=== PATIENT | female | born 1995 | race Caucasian/White ===

== ENCOUNTER 2017-05-29 09:27 | Emergency (ER) | payer OTHER ==
--- NOTE | 2017-05-29 09:33 | EDPHY ---
H & P Time Seen by Provider: 05/29/17 09:32 - Medical/Surgical History Hx Asthma: No Hx Chronic Respiratory Disease: No Hx Diabetes: No Hx Cardiac Disease: No Hx Renal Disease: No Hx Cirrhosis: No Hx Alcoholism: No Hx HIV/AIDS: No Hx Splenectomy or Spleen Trauma: No Other PMH: R knee sx - Social History Smoking Status: Never smoked Constitutional: Initial Vital Signs Temperature (C) 38.0 C 05/29/17 09:34 Heart Rate 100 05/29/17 09:34 Respiratory Rate 16 05/29/17 09:34 Blood Pressure 117/80 05/29/17 09:34 O2 Sat (%) 92 05/29/17 09:34 O2 Delivery Mode Room Air Allergies/Adverse Reactions: No Known Allergies Allergy (Unverified 08/16/14 19:19) Home Medications: Medication Instructions Recorded Albuterol [Proventil Inhaler] 1 - 2 puffs IH Q4 #1 mdi 05/29/17 Bcp 05/29/17 HYDROcodone/HOMATROPINE HYCODA 1 tsp PO Q4-6PRN PRN #120 ml 05/29/17 [Hycodan Syrup (RX)] Lexapro 05/29/17 levOFLOXACIN [levAQUIN 750 MG (RX)] 750 mg PO DAILY #10 tab 05/29/17 Medical Decision Making - Diagnostics Imaging: I viewed and interpreted images myself ED Course/Re-evaluation: CHIEF COMPLAINT: Cough, headache, nausea, vomiting HISTORY OF PRESENT ILLNESS: The patient is a 21 y/o female complaining of cough, headache, nausea, vomiting , and chills since Tuesday, 4 days ago. Her symptoms worsened on . Denies shortness of breath, abdominal pain, paresthesias, numbness, urinary or bowel complaints, or other pertinent symptoms. REVIEW OF SYSTEMS: A 10 point review of systems was performed and is negative with the exception of the elements mentioned in the history of present illness. PHYSICAL EXAM: HR, BP, O2 Sat, RR. Temp noted General Appearance: Alert, well hydrated, appropriate, and non-toxic appearing. Head: Atraumatic without scalp tenderness or obvious injury Eyes: Pupils equal, round, reactive to light and accommodation, EOMI, no trauma , no injection. Nose: Atraumatic, no rhinorrhea, clear. Throat: Mucus membranes moist. Neck: Supple, nontender, no lymphadenopathy. Respiratory: Few coarse rhonchi. No retractions, no distress, no wheezes, and no accessory muscle use. Cardiovascular: Regular rate and rhythm, no murmurs, rubs, or gallops. Good capillary refill all extremities. Gastrointestinal: Abdomen is soft, nontender, non-distended, no masses, no rebound, no guarding, no peritoneal signs. Musculoskeletal: Normal active ROM of all extremities, atraumatic. Neurological: Alert, appropriate, and interactive. Non-focal neuro. Skin: No rashes, good turgor, no nodules on palpation. Past medical history: Denies Past surgical history: Right knee surgery Family history: Noncontributory Social history: Student at , lives in [place], single DIAGNOSTICS/PROCEDURES/CRITICAL CARE TIME: Chest x-ray: Lower left lobe pneumonia DIFFERENTIAL DIAGNOSIS: The differential diagnosis for the patient's fever included but was not limited to pneumonia, urinary tract infection, viral syndrome, meningitis, and sepsis. MEDICAL DECISION MAKING: The patient is a 21 y/o female presenting with nausea, chills, cough, and headache for 4 days. On exam she has a few coarse rhonchi. Chest x-ray ordered. 600mg PO Motrin administered. 1030: Patient's flu swab is negative. Symptoms are consistent with a viral syndrome. 1041: Patient's chest x-ray reveals a lower left lobe pneumonia. 1043: Reassessed patient and discussed laboratory and imaging findings. She is now telling me that she had pain in her lower left ribs since her symptoms began. I have prescribed her Levaquin for pneumonia. Return precautions provided ; patient is comfortable with this plan. - Data Points Laboratory Results: 05/29/17 09:45 Nasal Influenza A PCR NEGATIVE FOR FLU A (NEGATIVE) Nasal Influenza B PCR NEGATIVE FOR FLU B (NEGATIVE) Medications Given: Discontinued Medications Ibuprofen (Motrin) 600 mg PO EDNOW ONE Stop: 05/29/17 09:37 Last Admin: 05/29/17 09:40 Dose: 600 mg Departure - Departure Disposition: Home, Routine, Self-Care Clinical Impression: Viral syndrome Pneumonia Qualifiers: Pneumonia type: due to unspecified organism Laterality: left Lung location: lower lobe of lung Qualified Code(s): J18.1 - Lobar pneumonia, unspecified organism Condition: Good Instructions: Viral Syndrome (ED), Pneumonia (ED) Additional Instructions: 1. You have pneumonia, but do not have influenza. 2. Take Levoquin as prescribed; make sure you finish the entire prescription even if you begin to feel better. 3. Most important thing is to drink plenty of fluid, control your symptoms with [id number] medications, and get plenty of rest. 4. If you have a fever, use Tylenol or ibuprofen. You may take both at the same time if needed. Adult Pain & Fever Control: We recommend Acetaminophen (Tylenol) and Ibuprofen (Motrin, Advil) for pain and fever control. When fever is high or pain severe, both drugs can be used at the same time, but at different intervals. Please note the time differences. Your dose is: Acetaminophen [650-1000]mg every 4 to 6 hours Ibuprofen [600]mg every [8] hours with food. 5. Return to emergency department or seek care urgently if you're symptoms are worsening despite the above treatment, if you develop shortness of breath, if you're unable to drink fluids secondary to throat pain or other issues, if you developed, vomiting, diarrhea, or have recurrent episodes of fainting. Referrals: DR LINDA [Other] - As per Instructions Prescriptions: Albuterol [Proventil Inhaler] 1 - 2 puffs IH Q4 #1 mdi HYDROcodone/HOMATROPINE HYCODA [Hycodan Syrup (RX)] 1 tsp PO Q4-6PRN PRN #120 ml PRN Reason: Cough, Moderate levOFLOXACIN [levAQUIN 750 MG (RX)] 750 mg PO DAILY #10 tab Report Scribed for: Nate Villaseñor Report Scribed by: Vivian Hernandez Date of Report: 05/29/17 Time of Report: 09:34
[2017-05-29 09:36] VITALS: O2SAT 92
[2017-05-29] MEDS ORDERED: IBUPROFEN 600 MG TAB PO ONE (09:36)
[2017-05-29 10:49] VITALS: BP 119/63; PULSE 92; RESP 18; TEMP 99.5
== END 2017-05-29 10:48 | disposition home or self-care (01) ==
DX: B34.9 Viral infection, unspecified (principal); J18.9 Pneumonia, unspecified organism

== ENCOUNTER 2017-09-24 12:16 | Emergency (ER) | payer OTHER ==
[2017-09-24 12:22] VITALS: BP 135/86
--- NOTE | 2017-09-24 12:46 | EDPHY ---
H & P Stated Complaint: sore throat and L ear pain x 3 days Time Seen by Provider: 09/24/17 12:39 HPI/ROS: CHIEF COMPLAINT: Sore throat, left otalgia x3 days HISTORY OF PRESENT ILLNESS: 21-year-old immunocompetent female complaining of 3 days of left-sided throat pain, left otalgia, night sweats, flu-like symptoms. No chest pain. No abdominal pain. No nausea or vomiting. No back or flank pain. No urinary abnormality. REVIEW OF SYSTEMS: A ten point review of systems was performed and is negative with the exception of the items mentioned in the HPI PAST MEDICAL & SURGICAL HISTORY: No pertinent medical or surgical history SOCIAL HISTORY:Daily tobacco abuse PHYSICAL EXAM (Prior to examination, patient consented to physical exam, hands were washed and my usual and customary physical exam procedures followed) 1) GENERAL: Well-developed, well-nourished, alert and oriented. Appears to be in no acute distress. 2) HEAD: Normocephalic, atraumatic 3) HEENT: Pupils equal, round, reactive to light bilaterally. Sclera anicteric. Nasopharynx, oropharynx, clear, no lesions. No tonsillar enlargement or exudate. No trismus or drooling. No hot potato voice. Ears bilaterally with normal tympanic membranes, no signs of otitis media otitis externa, nonbulging non erythematous tympanic membranes. 4) NECK: Full range of motion, no meningeal signs. Positive bilateral submandibular adenopathy, tender. 5) LUNGS: Clear auscultation bilaterally, no wheezes, no rhonchi, no retractions. 6) HEART: Regular rate and rhythm, no murmur, no heave, no gallop. 7) ABDOMEN: No guarding, no rebound, no focal tenderness, negative McBurney's, negative Parikh's, negative Rovsing's, negative peritoneal sign, negative splenomegaly 8) MUSCULOSKELETAL: Moving all extremities, no focal areas of tenderness, no obvious trauma. No peripheral edema or discoloration. 9) BACK: No CVA tenderness, no midline vertebral tenderness, no fluctuance, no step-off, no obvious trauma, no visual or palpable abnormality. 10) SKIN: No rash, no petechiae. 11) Psychiatric: Patient is oriented X 3, there is no agitation. DIFFERENTIAL DIAGNOSIS: In no particular include but limited to otitis media, otitis externa, meningitis, mononucleosis, strep pharyngitis, viral pharyngitis , viral URI - Personal History LMP (Females 10-55): 1-7 Days Ago - Medical/Surgical History Hx Asthma: No Hx Chronic Respiratory Disease: No Hx Diabetes: No Hx Cardiac Disease: No Hx Renal Disease: No Hx Cirrhosis: No Hx Alcoholism: No Hx HIV/AIDS: No Hx Splenectomy or Spleen Trauma: No Other PMH: R knee sx 2014. pna 05/26 - Social History Smoking Status: Never smoked Constitutional: Initial Vital Signs Heart Rate 78 09/24/17 12:19 Respiratory Rate 16 09/24/17 12:19 Blood Pressure 135/86 H 09/24/17 12:19 O2 Sat (%) 97 09/24/17 12:19 O2 Delivery Mode Room Air O2 (L/minute) 37.1 Allergies/Adverse Reactions: No Known Allergies Allergy (Verified 09/24/17 12:18) Home Medications: Medication Instructions Recorded Albuterol [Proventil Inhaler] 1 - 2 puffs IH Q4 #1 mdi 05/29/17 Bcp 05/29/17 Lexapro 05/29/17 Fluticasone Nasal [Flonase Nasal 2 sprays NASAL DAILY #1 mdi 09/24/17 [place] (RX)] Ipratropium 0.06% Nasal [Atrovent 2 sprays EACHNARE QID #1 mdi 09/24/17 0.06% Nasal (RX)] Medical Decision Making ED Course/Re-evaluation: 1:30 p.m.: Patient was re-examined by myself. Discussed her negative strep, negative mono results. Low clinical suspicion for strep pharyngitis. We discussed more than likely viral etiology. Doubt meningitis. Doubt epiglottitis. At this time I do not think that further diagnostic studies are indicated. We discussed supportive care. Regarding her tobacco abuse, I spent greater than 3 min discussing tobacco cessation. She feels comfortable being discharged. Usual and customary discharge precautions instructions provided. All questions and concerns addressed by myself - Data Points Laboratory Results: 09/24/17 09/24/17 09/24/17 Unknown 13:05 13:00 Monoscreen NEGATIVE (NEGATIVE) Group A Strep Screen NEGATIVE (NEGATIVE) Group A Strep DNA Pending Departure - Departure Disposition: Home, Routine, Self-Care Clinical Impression: Sore throat, Post-nasal drainage, Acute rhinosinusitis Condition: Good Instructions: Pharyngitis (ED), Rhinosinusitis (ED) Additional Instructions: Return to the emergency department immediately for change in breathing habits, change in voice, change in swallowing habits, change in mental status, or any other symptoms that concern you. Adult Pain & Fever Control: We recommend Acetaminophen (Tylenol) and Ibuprofen (Motrin,Advil) for pain and fever control. When fever is high or pain severe, both drugs can be used at the same time, but at different intervals. Please note the time differences. Your dose is: Acetaminophen 650mg every 4 to 6 hours Ibuprofen 600mg every 6 hours with food OR Note: do not take Acetaminophen with Hydrocodone (Vicodin, Lortab) or Oycodone (Percocet). These medications also contain Acetaminophen. No more than 3000mg of Acetaminophen should be taken in 24 hours (for an adult). Referrals: [facility],. [Clinic] - 1-2 days without fail Prescriptions: Fluticasone Nasal [Flonase Nasal [place] (RX)] 2 sprays NASAL DAILY #1 mdi Ipratropium 0.06% Nasal [Atrovent 0.06% Nasal (RX)] 2 sprays EACHNARE QID #1 mdi
== END 2017-09-24 13:42 | disposition home or self-care (01) ==
DX: J02.9 Acute pharyngitis, unspecified (principal); R09.82 Postnasal drip; J01.90 Acute sinusitis, unspecified